=== PATIENT | female | born 1940 | race Caucasian/White ===

== ENCOUNTER → 2016-12-03 | Outpatient (CLI) | payer OTHER, MEDICARE ==
[~2016-12-03] MED LIST: ADULT LOW DOSE81 MG PO; DIVIGEL0.25 MG TD; FOSAMAX 70 MG T70 M1 PO; LEVOTHROID88 MCG PO; LISINOPRIL40 MG PO; SIMVASTATIN
== END ==
LOC: ULTRA 01:04
DX: R92.2 Inconclusive mammogram (principal)

== ENCOUNTER → 2018-06-02 | Outpatient (CLI) | payer OTHER, MEDICARE | LOC: RAD 01:21 | DX: Z12.31 Encounter for screening mammogram for malignant neoplasm of breast (principal); I10 Essential (primary) hypertension; E03.9 Hypothyroidism, unspecified ==

== ENCOUNTER → 2019-06-06 | Outpatient (CLI) | payer OTHER, MEDICARE | LOC: RAD 01:13 | DX: Z12.31 Encounter for screening mammogram for malignant neoplasm of breast (principal) ==

== ENCOUNTER → 2020-06-11 | Outpatient (CLI) | payer OTHER, MEDICARE | LOC: RAD 10:29 | PROVIDERS: ATTEND Internal Medicine | DX: Z12.31 Encounter for screening mammogram for malignant neoplasm of breast (principal) ==